=== PATIENT | female | born 1955 | race African-American/Black ===

== ENCOUNTER 2019-05-07 08:47 | Day surgery (SDC) | payer OTHER ==
[2019-05-06 09:18] VITALS: BMI 34.9
[2019-05-07] MEDS ORDERED: DEXAMETHASONE SOD PHOSPHATE 4 MG/1 ML VIAL ONE (09:08)
[2019-05-07] MEDS ORDERED: PROPOFOL 20 ML ONE ×2 (09:08→11:25)
[2019-05-07] MEDS ORDERED: MIDAZOLAM HCL 2 MG/2 ML SINGLE DOSE VIAL ONE (09:08)
[2019-05-07] MEDS ORDERED: ONDANSETRON 4 MG/2 ML VIAL ONE ×3 (09:08→12:38)
[2019-05-07 09:26] VITALS: TEMP 98.2
--- NOTE | 2019-05-07 10:21 | HP ---
History & Physical Update - History History: No Change - Physical Physical: No Change - Assessment Assessment: No Change - Plan Plan: No Change (No change since preop evaluation with Dr Meier on 04/30. No h/o dvt/pe use of AC per pt.)
[2019-05-07] MEDS ORDERED: MORPHINE SULFATE 10 MG/1 ML *VIAL ONE (10:45)
[2019-05-07] MEDS ORDERED: ceFAZolin SODIUM 1 GM VIAL ONE (11:09)
[2019-05-07] MEDS ORDERED: SODIUM CHLORIDE 0.9% P/F 10 ML VIAL IJ ONE (11:09)
[2019-05-07] MEDS ORDERED: KETOROLAC TROMETHAMINE 30 MG/1 ML VIAL ONE (11:09)
[2019-05-07] MEDS ORDERED: BUPIVACAINE HCL/PF 0.5% (5MG/ML) 10 ML VIAL IJ ONE ×2 (11:25→11:45)
[2019-05-07] MEDS ORDERED: MORPHINE SULFATE/PF 10 MG/ML ML IT ONE (11:45)
[2019-05-07] MEDS ORDERED: oxyCODONE HCL 5 MG TABLET PO PRN ×2 (12:13)
[2019-05-07] MEDS ORDERED: ONDANSETRON 4 MG/2 ML VIAL IVPUSH PRN (12:13)
[2019-05-07] MEDS ORDERED: LACTATED RINGERS SOLUTION 1,000 ML IV SCH (12:15)
--- NOTE | 2019-05-07 12:18 | OP ---
Operative Note - Note: Operative Date: 05/07/19 Pre-Operative Diagnosis: Internal derangement of the right knee Operation: right knee arthroscopy with stem cell recruitment and debridement Findings: as dictated Post-Operative Diagnosis: Same as Pre-op Surgeon: Agapito Stapleton Office Rn: Esther Sweeney Anesthesiologist/LUMBER RACKER: Jazmin Trinh Anesthesia: General, Local Estimated Blood Loss (mls): 5 (ml) Fluid Volume Replaced (mls): 800 (ml LR) Operative Report Dictated: Yes
[2019-05-07] MEDS ORDERED: PROMETHAZINE HCL 25 MG/1 ML VIAL ONE (15:40)
[2019-05-07] MEDS ORDERED: PROMETHAZINE HCL 25 MG/1 ML VIAL IVPUSH ONE (15:51)
[2019-05-07 17:19] VITALS: BP 122/59; PULSE 73
--- NOTE | 2019-05-10 15:52 | OP ---
DATE OF OPERATION: 05/07/2019 PREOPERATIVE DIAGNOSIS: Torn medial meniscus to the right knee. POSTOPERATIVE DIAGNOSES: 1. 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 2. 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 3. Extensive joint debris. 4. Hypertrophic synovium. 5. Tearing of the medial and lateral meniscus. PROCEDURE PERFORMED: 1. Arthroscopy, right knee with microdrilling for osteochondritis dissecans lesion medial femoral condyle. 2. Chondral shaving chondroplasty. 3. Extensive joint debridement. 4. Extensive synovectomy. 5. Partial medial and lateral meniscectomy. 6. Plastic surgical closure of operative sites. SURGEON: Syd Stapleton MD DIE MOUNTER: CHANELL Garcia ANESTHESIA: Pedro Simeon MD ANESTHESIA TYPE: General anesthesia. DESCRIPTION OF PROCEDURE: The procedure consisted of the patient being brought into the operating room and gently transferred from the stretcher to the OR table with all bony prominences well padded. The right leg was prepared and draped in a sterile fashion. The patient was given intravenous antibiotics and copious irrigation throughout the procedure to minimize risk of infection. A complete risk, benefit, alternative discussion was conducted with the patient, which was inclusive of, but not limited to, infection, bleeding, , paralysis, increased pain, need for repeat surgery. Patient asked questions, understood the procedure, and desired to proceed with the surgical treatment. Following sterile preparation and draping of the right leg, an appropriate time-out was conducted, which was inclusive of, but not limited to, type of surgery, site of surgery, anesthesiologist, and surgeon. Following sterile preparation and draping of the right leg, the leg was exsanguinated using a rubber Esmarch bandage and the tourniquet inflated to 325 mmHg. Suprapatellar, medial and lateral joint line portals were used to introduce the arthroscope and arthroscopic instruments. The suprapatellar knee was examined. There was noted to be inflamed synovium tissue, which was quite extensive, and extensive synovectomy was performed. Medial and lateral gutters were without plaque or loose body. Inferior surface of the patella had damage consistent with chondromalacia, and a chondral shaving was performed and chondroplasty with shaver and radiofrequency wand. The medial meniscus was examined and found to have a tear of the posterior horn, and this was resected using a shaver and radiofrequency wand. It should be noted that the 1st bilingual office assistant and PA were critical for the surgical procedure to be done safely. When I was using the shaver and the radiofrequency wand, the bilingual office assistant held the arthroscope. Examination of the medial femoral condyle demonstrated a 1-cm diameter osteochondritis dissecans lesion. This was debrided, and a 0.62-mm drill was used to microdrill a pattern of holes to allow stem cell recruitment to fill the defect. As I drilled, the 1st bilingual office assistant held the arthroscope and assisted in safe surgical treatment. The intercondylar region was noted to have joint debris, and extensive joint debridement was performed for the extensive joint debris. Anterior cruciate ligament and posterior cruciate ligaments were found to be intact. Anterior cruciate ligament had fraying, and this was smoothed using shaver and radiofrequency wand. Lateral meniscus was found to have a tear of the posterior horn, and this was resected using shaver and radiofrequency wand. The knee was then copiously irrigated with sterile saline irrigant. The wounds were closed with 4-0 undyed Vicryl followed by Steri-Strips, Xeroform, 4 x 4's, Combine, sterile Webril, SYLWIA bandage, and a knee immobilizer. The tourniquet was deflated after approximately 30 minutes tourniquet time. There were no known intraoperative complications. SYD STAPLETON M.D. [id number]
== END 2019-05-07 17:43 | disposition home or self-care (01) ==
LOC: EDSEX 08:47 → FASU 08:47
PROVIDERS: ATTEND Orthopaedic Surgery
PROC: 0SBC4ZZ Excision of Right Knee Joint, Percutaneous Endoscopic Approach (ICD-10-PCS; 2019-05-07)
PROC: 0SBC4ZZ Excision of Right Knee Joint, Percutaneous Endoscopic Approach (ICD-10-PCS; 2019-05-07)
PROC: 0SQC4ZZ Repair Right Knee Joint, Percutaneous Endoscopic Approach (ICD-10-PCS; 2019-05-07)
PROC: 0SBC4ZZ Excision of Right Knee Joint, Percutaneous Endoscopic Approach (ICD-10-PCS; principal; 2019-05-07 11:20)
DX: S83.241A Other tear of medial meniscus, current injury, right knee, initial encounter (principal); S83.281A Other tear of lateral meniscus, current injury, right knee, initial encounter; M93.261 Osteochondritis dissecans, right knee; M94.261 Chondromalacia, right knee; M67.261 Synovial hypertrophy, not elsewhere classified, right lower leg; M25.861 Other specified joint disorders, right knee; X58.XXXA Exposure to other specified factors, initial encounter; Y93.9 Activity, unspecified; Y92.9 Unspecified place or not applicable
CPT/HCPCS: 94760